=== PATIENT | female | born 1995 | race Caucasian/White ===

== ENCOUNTER 2016-07-30 15:29 | Emergency (ER) | payer BC ==
[2016-07-30 17:34] LABS: HEMOGLOBIN 13.2 gm/dl (12.3-15.3); RED BLOOD COUNT 4.41 M/UL (4.00-5.10)
[2016-07-30 17:53] LABS: BUN/CREATININE RATIO 23 (0-10)
== END 2016-07-30 19:10 | disposition home or self-care (01) ==
LOC: ER1 15:29
PROVIDERS: Physician Assistant
DX: R42 Dizziness and giddiness (principal); N39.0 Urinary tract infection, site not specified
CPT/HCPCS: 36415; 70450; 80053; 81001; 82550; 82553; 82962; 83874; 84484; 84703; 85025; 85379; 87086; 93005; 96360; 99284; J7030